=== PATIENT | female | born 2000 | race Caucasian/White ===

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

== ENCOUNTER 2019-04-09 06:10 | Day surgery (SDC) | payer BC ==
[2019-04-09 07:34] VITALS: BP 115/78; BMI 24.8
[2019-04-09 07:45] LABS: HEMATOCRIT 36.6 % (36.0-48.0); HEMOGLOBIN 12.8 g/dL (12-16); MCH 31.9 pg (26.0-34.0); MCV 91.3 fL (80.0-100.0); MEAN PLATELET VOLUME 10.2 fL (7.4-10.4); RBC 4.01 10x6/uL (4.00-5.40); RDW 12.6 % (11.5-14.5)
[2019-04-09 07:50] LABS: HCG URINE NEGATIVE (NEGATIVE)
[2019-04-09] MEDS ORDERED: HYDROCODON-ACE1 EAC7 PO (10:22)
[2019-04-09] MEDS ORDERED: DURICEF500 MG PO (10:22)
--- NOTE | 2019-04-09 12:58 | OP ---
PATIENT NAME: KAY LAZO MEDICAL RECORD: [id number] :99 LOCATION:[facility] ADMISSION DATE: SURGEON: BRITTNEY JOHNS DO DATE OF OPERATION: 04/09/2019 PROCEDURE PERFORMED: Excision of recurrent ganglion cyst of the right wrist, dorsal wrist. PREOPERATIVE DIAGNOSIS: Recurrent ganglion cyst, right wrist, dorsal wrist. POSTOPERATIVE DIAGNOSIS: Recurrent ganglion cyst, right wrist, dorsal wrist. INDICATIONS: Ms. Lazo is a 19-year-old female who underwent a ganglion cyst excision on the dorsal aspect of her wrist about 6 months ago and it had recurred. She was informed that if this does happen again, we try to remove it again and see if it would go away this time. She is aware of the risks including recurrence, infection, bleeding, damage to nerves and vessels and she signed the consent. SURGEON: Brittney Jonhs DO DESCRIPTION OF PROCEDURE: The patient was taken to the operative suite, laid in supine position, given TIVA, slight sedation. The right upper extremity was prepped and draped in sterile fashion. A timeout was performed, everyone was in agreement as to the correct site, side, patient and procedure. The patient was given a gram of Ancef preoperatively. The right upper extremity was then exsanguinated with an Esmarch and tourniquet was inflated to 250 mmHg, was up for 22 minutes. The incision then began over the prior incision on the dorsal wrist and careful dissection was made down to the ganglion. It did rupture, but we got down to the stalk off the scapholunate area of the wrist and removed it from the capsule. We noticed there was a rent in the capsule and this was repaired with 3-0 Vicryl and a 5-0 Monocryl also and then this was coagulated with the bipolar, closed, sealed with bipolar hopefully sealing the wrist joint up so it would not occur. The tourniquet was let down 22 minutes and any of the bleeding was coagulated with bipolar. The incision was then closed with 5-0 Monocryl in inverted interrupted fashion. Steri-Strips were placed on Adaptic, 4 x 4's, Kerlix, and a Coban was lightly wrapped on the wrist. The patient was awakened and taken back to outpatient in stable condition. BLOOD LOSS: Minimal. COMPLICATIONS: None. TRANSINT:[id number] Voice Confirmation ID: [id number] DOCUMENT ID: [id number] BRITTNEY JOHNS DO at 1258 CC: [id number] DICTATION DATE: 04/09/19 1019 SUGAR LABORATORY ASSISTANT: 04/09/19 1228 [facility] [place] [id number] [place] [id number]
== END 2019-04-09 12:12 | disposition home or self-care (01) ==
LOC: D.OPS 06:10
PROVIDERS: Anesthesiology; ATTEND Orthopaedic Surgery
DX: M67.431 Ganglion, right wrist (principal); Z01.812 Encounter for preprocedural laboratory examination

== ENCOUNTER 2020-05-30 21:01 | Outpatient (CLI) | payer BC ==
[2020-05-30 21:57] LABS: UDS - AMPHET NEGATIVE QUAL (NEGATIVE); UDS - BARB NEGATIVE QUAL (NEGATIVE); UDS - BENZO NEGATIVE QUAL (NEGATIVE); UDS - COCAINE NEGATIVE QUAL (NEGATIVE); UDS - OPIATE NEGATIVE QUAL (NEGATIVE); UDS - PCP NEGATIVE QUAL (NEGATIVE); UDS - THC NEGATIVE QUAL (NEGATIVE)
[2020-05-30 22:15] LABS: BACTERIA MODERATE /hpf (NEGATIVE); BILIRUBIN NEGATIVE (NEGATIVE); EPITHELIAL CELLS 0-5 /hpf (0-5); GLUCOSE NEGATIVE (NEGATIVE); KETONE NEGATIVE (NEGATIVE); NITRITE NEGATIVE (NEGATIVE); RED CELLS - URINE OCC /hpf (0-5); UROBILINOGEN NORMAL (NORMAL); WHITE CELLS - URINE OCC /hpf (NEGATIVE)
== END 2020-05-30 22:45 ==
LOC: D.LDO 21:01
PROVIDERS: ATTEND Obstetrics & Gynecology
DX: O26.899 Other specified pregnancy related conditions, unspecified trimester (principal); Z3A.00 Weeks of gestation of pregnancy not specified; R42 Dizziness and giddiness; R10.9 Unspecified abdominal pain

== ENCOUNTER 2020-06-09 10:00 | Outpatient (CLI) | payer BC | END 2020-06-09 10:36 | disposition home or self-care (01) | LOC: D.LDO 10:00 | PROVIDERS: ATTEND Obstetrics & Gynecology | DX: O36.5930 Maternal care for other known or suspected poor fetal growth, third trimester, not applicable or unspecified (principal); Z3A.35 35 weeks gestation of pregnancy ==

== ENCOUNTER 2020-06-19 05:47 | Inpatient (IN) | payer BC, MEDICAID ==
[~2020-06-19] VITALS: Ht 160 cm; Wt 81.6 kg
[2020-06-19] VITALS (19 sets, daily range): BP systolic 85–109; BP diastolic 46–72; Ht 160 cm; Wt 81.6 kg
[2020-06-19] MEDS ORDERED: PREPLUS CA-FE1 EACH PO (06:35)
[2020-06-19 07:15] LABS: HEMOGLOBIN 10.4 g/dL (12-16); MCH 31.4 pg (26.0-34.0); MCHC 33.5 g/dL (31.0-37.0); MCV 93.7 fL (80.0-100.0); MEAN PLATELET VOLUME 9.2 fL (7.4-10.4); RBC 3.31 10x6/uL (4.00-5.40); RDW 12.9 % (11.5-14.5); WBC 8.2 10x3/uL (4.8-10.8)
--- NOTE | 2020-06-19 08:33 | NUR ---
BABY GIRL LIVE @ 2497
--- NOTE | 2020-06-19 08:43 | NUR ---
YONI REF [id number] LOT [id number] EXP 12/21/2024
--- NOTE | 2020-06-19 09:33 | NUR ---
REC'D FROM PACU.
--- NOTE | 2020-06-19 10:06 | NUR ---
ASSESSMENT COMPLETE. SEE FLOWSHEET. PATIENT A&O X4. DENIES PAIN. SKIM WARM AND DRY. IV IN LEFT HAND WITH PIPE CHIPPER AND FLUID. SL LOCK IN RIGHT HAND. DRESSING ON ABDOMINAL INCISION WITH MININAL DRAINING-DRAINAIGE MARKED. SIMENTAL CATH IN PLACE WITH CLEAR YELLOW URINE OUTPUT. FUNDUS FIRM, MIDLINE, U1. SCD'S ON BILAT. CALL LIGHT IN REACH. AT BEDSIDE.
--- NOTE | 2020-06-19 11:30 | NUR ---
ROUNDING COMPLETE. EMPTIED 300CC OF CLEAR URINE OUT OF SIMENTAL CATH. PATIENT DENIES ANY NEEDS AT THIS TIME. CALL LIGHT IN REACH, SCD'S ON BILAT, IN ROOM. BABY SKIN TO SKIN WITH MOM.
--- NOTE | 2020-06-19 12:10 | NUR ---
ROUNDING WITH PATIENT. PATIENT STATES SHE FEELS LIKE SHE IS VAGINALLY BLEEDING. MODERATE AMOUNT OF BLEEDING ON PAD. LIDA AREA CLEANED AND NEW PAD PLACED. PATIENT STATES SHE IS STARTING TO HAVE A LITTLE PAIN WITH MOVMEMENT. RATES PAIN 3/10 WITH MOVEMENT. 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 PATIENT DENIES FURTHER NEEDS. IN ROOM. SCD'S ON BILAT, CALL LIGHT IN REACH.
--- NOTE | 2020-06-19 12:22 | NUR ---
FUNDUS FIRM, MIDLINE AND U1 WITH SMALL AMT RUBRA LOCHIA, ONE SMALL DIME SIZED CLOT NOTED TO PERIPAD. SIMENTAL DRAINING TO BEDSIDE DRAINAGE.
--- NOTE | 2020-06-19 13:16 | NUR ---
ROUNDING WITH PATIENT. PATIENT RESTING, DENIES PAIN OR NEEDS AT THIS TIME. IN ROOM. SCD'S ON BILAT, CALL LIGHT IN REACH.
--- NOTE | 2020-06-19 14:12 | NUR ---
ROUDNING WITH BABY. PATIENT ATTEMPTING TO NURSE BABY. BABY HAVING A HARD TIME LATCHING ON. NIPPLE SHILD PROVIDED FOR PATIENT. BABY LACHED ON WITH OUT SHIELD AT THIS TIME. WILL CONTINUE TO ASSIST NEEDED. CALL LIGHT IN REACH. SCD'S ON BILAT. AT BEDSIDE. PATIENT DENIES NEEDS AT THIS TIME.
--- NOTE | 2020-06-19 15:25 | NUR ---
ROUNDING COMPLETE. VSS. SCD'S ON BILAT. PATIENT STATES ROOM FEELS WARM. TEMP ADJUSTED. EMPTIED 100CC OF CLEAR URINE OUT OF SIMENTAL CATH. PATIENT STATES HAS SOME MILD CRAMPING IN HER ABDOMEN. PAIN CONTROLLED WITH BRIGHT CUTTER. LIDA PAD WITH SMALL AMOUNT OF BLOOD NOTED. LIDA PAD CHANGED. FUNDIS FIRM, U1. PATIENT DENIES NEEDS AT THIS TIME. AT BEDSIDE. CALL LIGHT IN REACH.
[2020-06-19 15:46] LABS: BASOPHILS 0.1 % (0-2); EOSINOPHILS 0.5 % (0-7); HEMATOCRIT 25.7 % (36.0-48.0); IMMATURE GRANULOCYTES 0.3 % (0-5); LYMPHOCYTES 14.5 % (15-50); MCH 31.3 pg (26.0-34.0); MCHC 31.9 g/dL (31.0-37.0); MEAN PLATELET VOLUME 9.2 fL (7.4-10.4); MONOCYTES 7.5 % (2-11); NEUTROPHILS 77.1 % (40-80); RDW 13.2 % (11.5-14.5); WBC 9.3 10x3/uL (4.8-10.8)
[2020-06-19 15:52] LABS: HEMOGLOBIN 8.2 g/dL (12-16); MCV 98.1 fL (80.0-100.0); PLATELET COUNT 195 10x3/uL (130-400); RBC 2.62 10x6/uL (4.00-5.40)
--- NOTE | 2020-06-19 16:13 | NUR ---
CALLED DR DONNELLY ON LAB RESULTS. NO NEW ORDERS.
--- NOTE | 2020-06-19 17:10 | NUR ---
ROUNDING ON PAITNET. WATER CUP FILLED AND BOTH ICE PACKS FILLED. PATIENT DENIES ANY NEEDS AT THIS TIME. IN ROOM SNUGGLING BABY. CALL LIGHT IN REACH. SCD'D ON BILATERALLY.
--- NOTE | 2020-06-19 17:40 | NUR ---
ROUNDING COMPLETE. REQUEST FOR FORMULA FOR BABY. FORMULA PROVIDED. PATIENT DENIES NEEDS AT THIS TIME. SCD'S ON BILAT, CALL LIGHT IN REACH. IN ROOM. PATIENT FEEDING BABY BOTTLE AT THIS TIME.
--- NOTE | 2020-06-19 18:08 | NUR ---
PATIENT COMPLAINS OF PAIN 06/02 IN ABD. STATES IT JUST STARTED WITH MOVEMENT. 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 TORADOL GIVEN IV PER REQUEST.
--- NOTE | 2020-06-19 18:32 | NUR ---
PAIN RECHECK WITH PATIENT. STATES PAIN IS MUCH BETTER 1/10 AT THIS TIME. DENIES NEEDS. SCD'S IN PLACE BILATERAL, CALL LIGHT IN REACH. IN ROOM SNUGGLING BABY.
--- NOTE | 2020-06-19 19:30 | NUR ---
REPORT [id number] BY ADDISON NELSON.
--- NOTE | 2020-06-19 20:00 | NUR ---
PT HAD A C SECTION THIS MORNING. SHE HAS A DISPOSITION CLERK PUMP WITH [employer] FOR PAIN CONTROL. SHE TELLS ME THE TORADOL SHE HAD WORKED WELL AND SHE'D LIKE THAT AGAIN WHEN IT'S TIME. ASSESSMENT COMPLETE. HEART SOUNDS WNL, LUNGS CLEAR, AND BOWEL SOUNDS FAINTLY HEARD. PT IS NOT PASSING GAS. SKIN IS WARM AND DRY, DRESSING TO INCISION IS DRY AND INTACT. HER LOCHIA IS SMALL. SIMENTAL IS DRAINING CLEAR URINE. PT HAS IV'S IN BOTH HANDS 18 G NEEDLE. THE LEFT IS SALINE LOCKED. PT STATES SHE IS STILL RATING HER PAIN A 4-5 AND I LET HER KNOW ITS OK TO USE THAT DISPOSITION CLERK. HER IS IN THE ROOM WITH HER AND HE IS EXCELLENT AT HELPING WITH THE BABY. CALL LIGHT IS WITHING REACH TO CALL IF SHE NEEDS ANYTHING.
--- NOTE | 2020-06-19 20:30 | NUR ---
INCENTIVE SPIROMETER IN ROOM. EDUCATED PT ON HOW TO USE. SHE GOT THE METER UP TO 1500. SHE STATES HOW MUCH IT HURTS. I ENCOURAGED HER TO USE THIS 10 X PER HOUR OR WORK UP TO THAT GOAL. SHE STATES THAT NOW THAT HER KNOWS, HER WILL SEE TO IT THAT SHE DOES THIS.
--- NOTE | 2020-06-19 22:00 | NUR ---
PT IS AWAKE AND ALERT WATCHING TV. SHE HAS NO NEEDS AT THIS TIME. NO C/O PAIN. BABY SLEEPING IN CRIB.
--- NOTE | 2020-06-20 | NUR ---
RESTING QUIETLY WITHOUT C/O.
[2020-06-20 00:45] VITALS: BP 105/56
--- NOTE | 2020-06-20 01:04 | NUR ---
IV TORADOL GIVEN. PT IS AWAKE AND ALERT TALKING WITH FOB.
--- NOTE | 2020-06-20 01:22 | NUR ---
PT ADMITTED FOR POSSIBLE ECTOPIC . PT HAS BEEN SPOTTING AND CRAMPING SINCE LAST . SHE STATES SHE IS MOSTLY CRAMPING NOW. SKIN WARM AND DRY, HEART SOUNDS WNL, LUNGS CLEAR. SHE IS AWAKE AND ALERT AND ABLE TO ANSWER ADMISSION QUESTIONS ACURATELY. SHE HAS AN IV IN HER RIGHT FOREARM INFUSING AT 15 ML/HR SHE IS UP AD DIANE IN HER ROOM. SHE STATES SHE IS ABOUT 5 WEEKS . SHE WAS ADMITTED FOR A PROCEDURE IN THE AM.
--- NOTE | 2020-06-20 02:00 | NUR ---
PT IS RESTING QUIETLY
[2020-06-20 04:00] VITALS: BP 93/54
--- NOTE | 2020-06-20 04:00 | NUR ---
SIMENTAL CARE DONE.
--- NOTE | 2020-06-20 04:05 | NUR ---
PT DOING WELL. SHE AND ARE AWAKE AND HAVE BEEN BONDING WITH THE BABY. BABY IS NOW SLEEPING IN THE CRIB. 800 ML OF URINE EMPTIED FROM THE SIMENATL CATHETER. URINE IS CONCENTRATED WITH AN ODOR. PAIN IS CONTROLLED NOW. PT STATES SHE IS GOING TO TRY TO SLEEP. FRESH ICE WATER TAKEN TO HER WELL 2 FRESH ICE PACKS.
[2020-06-20 06:11] LABS: BASOPHILS 0.1 % (0-2); EOSINOPHILS 0.8 % (0-7); HEMATOCRIT 25.1 % (36.0-48.0); HEMOGLOBIN 8.2 g/dL (12-16); IMMATURE GRANULOCYTES 0.3 % (0-5); LYMPHOCYTES 6.9 % (15-50); MCH 31.1 pg (26.0-34.0); MCHC 32.7 g/dL (31.0-37.0); MEAN PLATELET VOLUME 8.9 fL (7.4-10.4); MONOCYTES 6.1 % (2-11); NEUTROPHILS 85.8 % (40-80); PLATELET COUNT 207 10x3/uL (130-400); RBC 2.64 10x6/uL (4.00-5.40); RDW 13.2 % (11.5-14.5); WBC 10.6 10x3/uL (4.8-10.8)
[2020-06-20 06:15] LABS: MCV 95.1 fL (80.0-100.0)
[2020-06-20 07:15] LABS: RAPID PLASMA REAGIN Non Reactive (Non Reactive)
[2020-06-20 07:46] VITALS: BP 101/53
--- NOTE | 2020-06-20 07:46 | NUR ---
SHIFT ASSESSMENT COMPLETED PER FLOWSHEET. VSS. FUNDUS FIRM, MIDLINE AND U2 WITH SCANT RUBRA LOCHIA, NO CLOTS NOTED. C/O ABD AND INCISIONAL PAIN 2-3/10, STATES THAT LIVESTOCK FEEDER IS CONTROLLING PAIN WELL. DRSG TO LOWER TRANSVERSE ABD INCISION CLEAN DRY AND INTACT, NO NEW DRAINAGE FROM PREVIOUSLY MARKED AREA NOTED. PERICARE DONE, TOWELS, CHUX, AND PADS CHANGED. POC DISCUSSED WITH PT, VERBALIZES UNDERSTANDING AND DENIES QUESTIONS. REQUESTS REGULAR DIET WHEN POSSIBLE. DENIES ADDITIONAL NEEDS. R HAND AND L HAND PIV'S NOTED, NO S/S OF INFILTRATION NOTED. R HAND PIV INFUSING WITHOUT DIFFICULTY, L HAND PIV FLUSHES WITHOUT DIFFICULTY. INFANT RESTING QUIETLY IN OPEN CRIB. SCD'S OFF PER PT REQUEST.
--- NOTE | 2020-06-20 08:11 | NUR ---
DR. DONNELLY AT BEDSIDE. DRSG TO LOWER TRANSVERSE ABD INCISION REMOVED PER DR. DONNELLY. INCISION WELL APPROXIMATED WITH BART INTACT, NO DRAINAGE NOTED. DR. DONNELLY DISCUSSES POC WITH PT AND ANSWERS PT QUESTIONS.
--- NOTE | 2020-06-20 08:20 | NUR ---
L HAND PIV SL. R HAND PIV D/C'D PER PT REQUEST. SIMENTAL D/C'D WITH 150 MLS PRESENT. PT INSTRUCTED NOT TO GET OOB WITHOUT ASSIST, VERBALIZES UNDERSTANDING. BED IN LOW POSITION WITH SRUP X2. CALL LIGHT AND PHONE WITHIN REACH.
--- NOTE | 2020-06-20 09:38 | NUR ---
SITTING UP IN HIGH FOWLERS POSITION BONDING WITH . ICE WATER PROVIDED. DENIES ADDITIONAL NEEDS. BED IN LOW POSITION WITH SRUP X2. CALL LIGHT AND PHONE WITHIN REACH. WILL CONTINUE TO MONITOR.
--- NOTE | 2020-06-20 11:21 | NUR ---
UP TO VOID, VOIDED 600 MLS IN HAT. STEADY GAIT NOTED. DENIES DIZZINESS AND LIGHTHEADEDNESS. REFUSES PAIN MEDS AT THIS TIME. DENIES PAIN. WILL CONTINUE TO MONITOR.
--- NOTE | 2020-06-20 12:34 | NUR ---
PT PRESSES CALL LIGHT AND REQUESTS PAIN MED. THIS RN TO ROOM. PT SITTING UP EATING LUNCH TRAY. PT RATES PAIN 4/10 AT THIS TIME, STATES IT'S MORE ABD CRAMPING THAN INCISIONAL. PT STATES SHE JUST WANTS MOTRIN RIGHT NOW, ADMIN ORDERED, SEE EMAR FOR DOC. PT DENIES FURTHER NEEDS. SRUx2, CL IN REACH. SIG OTHER AT BEDSIDE.
--- NOTE | 2020-06-20 14:34 | NUR ---
PT CALLS OUT TEST EQUIPMENT MECHANIC LIGHT STATING SHE IS READY TO GET UP TO BR AND NEEDS ASSIST. THIS RN TO ROOM. PT UP TO BR TO VOID WITH MINIMAL ASSIST. PT VOIDS 500ML CLEAR YELLOW URINE. PERICARE AND PAD CHANGE PER PT, PERIPAD ALSO PLACED OVER INCISION. PT BED PADS CHANGED. PT AMBULATES BACK TO BED WITHOUT ASSIST. PT REQUESTS PAIN MED PAIN IS WORSE WITH MOVEMENT AND STATES "IT'S HARD TO GET COMFORTABLE EVEN JUST LYING HERE." PT ADMIN PRN NORCO 10 ORDERED PRN, SEE EMAR FOR DOC. MED EDUCATION ON NEW MED DONE. UNDERSTANDING VERBALIZED. FRESH ICE WATER PROVIDED. PT DENIES FURTHER NEEDS. SRUx2, CL IN REACH. SIG OTHER AT BEDSIDE.
--- NOTE | 2020-06-20 16:05 | NUR ---
THIS RN TO ROOM FOR PT CHECK. PT RESTING IN BED, SUPINE WITH LEFT TILT. EYES CLOSED, RESP EVEN AND UNLABORED. PT LEFT UNDISTURBED FOR REST. SIG OTHER ON BEDSIDE COUCH, AWAKE AND HOLDING . STATES PT HAS BEEN FEELING MUCH BETTER AFTER PAIN MED.
--- NOTE | 2020-06-20 17:20 | NUR ---
UP TO BR, VOIDED 600 MLS CLEAR LIGHT YELLOW URINE IN HAT. FUNDUS FIRM, MIDLINE AND U2 WITH SCANT RUBRA LOCHIA, NO CLOTS NOTED. BED IN LOW POSITION WITH SRUP X2. CALL LIGHT AND PHONE WITHIN REACH. WILL CONTINUE TO MONITOR.
[2020-06-20 17:54] VITALS: BP 105/57
--- NOTE | 2020-06-20 17:56 | NUR ---
VS DONE. SITTING UP IN BED- DENIES NEEDS.
[2020-06-20 19:24] VITALS: BP 105/58
--- NOTE | 2020-06-20 19:24 | NUR ---
ASSESSMENT PER FLOW SHEET, VS OBTAINED, FF, ML, U/1, PT DENIES FLATUS, NO BM AND VOIDING WITH NO DIFFICULTY, PT REPORTS BLEEDING LIGHT WITH NO CLOTS, BIKINI INC WITH BART CDI WITH NO DRAIANGE NOTED, PT RATES INC PAIN AND CRAMPING 2/10, PT DENIES NEED FOR ANY PAIN MED AT THIS TIME, PT INFORMED THAT SHE WILL BE MOVING TO A ROOM ON WOMENS, PT VERBALIZES UNDERSTANDING, FOB TO GET BELONGINGS TOGETHER
--- NOTE | 2020-06-20 20:00 | NUR ---
PT TRANSFERRED VIA AMB TO ROOM 1220 PER NGA HANSEN RN, PT ORIENTED TO ROOM, BED IN LOW POSITION, SIDE RAILS X 2, CALL LIGHT IN REACH, FOB BROUGHT ALL BELONGINGS TO ROOM
--- NOTE | 2020-06-20 21:13 | NUR ---
FOB AT HOST/HOSTESS, REPORTS PT WOULD LIKE TO HAVE A MOTRIN, THIS RN TO ROOM, ADM MOTRIN PER MD ORDERS, SEE EMAR, PT DENIES NEED FOR PAIN PILL AT THIS TIME, PT REPORTS THAT SHE WILL LET ME KNOW WHEN SHE IS READY FOR A PAIN PILL, PT DENIES FURTHER NEEDS, INFANT IN OPEN CRIB CART AT BEDSIDE
--- NOTE | 2020-06-20 22:21 | NUR ---
PT REQUESTED AND PROVIDED WIPES FOR INFANT, PT REPORTS THAT SHE WILL LET ME KNOW WHEN SHE IS READY FOR THE PAIN PILL, PT DENIES FURTHER NEEDS, INFANT IN OPEN CRIB CART AND FOB AT BEDSIDE
[2020-06-21 00:35] VITALS: BP 97/52
--- NOTE | 2020-06-21 00:35 | NUR ---
PT HOLDING INFANT, VS OBTAINED, RATES PAIN 4/10, DENIES NEED FOR PAIN MED, STATES "SHE HAS TO EAT IN AN HOUR AND I WILL PROBABLY TAKE IT AFTER I FINISH FEEDING HER", PT INST TO USE CALL LIGHT WHEN NEEDING PAIN MED, PT DENIES NEEDS, FOB AT BEDSIDE
--- NOTE | 2020-06-21 02:13 | NUR ---
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
--- NOTE | 2020-06-21 04:15 | NUR ---
PT RESTING WITH EYES CLOSED, RESP QUIET, NO DISTRESS NOTED, LEFT UNDISTURBED AT THIS TIME, FOB ASLEEP AT BEDSIDE
[2020-06-21 05:27] VITALS: BP 97/52
--- NOTE | 2020-06-21 05:27 | NUR ---
PT AWAKE, INFANT, VS OBTAINED, ADM MOTRIN PER MD ORDERS, SEE EMAR, PT DENIES FURTHER NEEDS, FOB AT BEDSIDE
--- NOTE | 2020-06-21 06:44 | NUR ---
PT SITTING UP IN BED, REPORTS "PAIN IS BETTER, JUST A LITTLE GASSY, BUT I CAN FEEL IT MOVING AROUND IN THERE", ENC PT TO AMB TODAY, PT DENIES NEEDS AT THIS TIME, INFANT IN OPEN CRIB CART AND FOB AT BEDSIDE
--- NOTE | 2020-06-21 07:36 | NUR ---
dr samano here to see pt.
[2020-06-21 07:37] VITALS: BP 93/48
--- NOTE | 2020-06-21 07:49 | NUR ---
ASSESSMENT DONE-VERBAL RESPONSES APPRO TO QUESTIONS. STATES UP TO BATHROOM. DENIES PASSING FLATUS YET. DENIES DIZZINESS WHEN UP. REG DIET SERBED. DENIES NEEDS.
--- NOTE | 2020-06-21 09:27 | NUR ---
PT STATES SHE IS PASSING FLATUS AND DOES NOT WANT DULCOLAX SUPPISITORY.
[2020-06-21 13:03] VITALS: BP 109/62
--- NOTE | 2020-06-21 13:05 | NUR ---
STANDING AT BEDSIDE. STATES SHE WAS GOINT TO BATHROOM. VS DONE. STATES THAT SHE HAS BEEN PASSING GAS AND IS READY FOR DISCHARGE TODAY. STATES SHE WANTS TO SHOWER AFTER SHE GOES HOME. DISCUSSED INCISION CARE FOR AFTER DISCHARGE. STATES UNDERSTANDING.
--- NOTE | 2020-06-21 14:47 | NUR ---
DISCHARGE INST GIVEN FOR PT TO READ- SEE SIGNED SHEET. CO HEADACHE AND REQUESTING MOTRIN. MED GIVEN.
[2020-06-21] MEDS ORDERED: HYDROCODON-ACE1 EA10 PO (15:44)
[2020-06-21] MEDS ORDERED: MOTRIN600 MG PO (15:45)
--- NOTE | 2020-06-21 16:02 | NUR ---
DISCHARGE INST VERBAL AND WRITTEN GIVEN. SCRIPT GIVEN. SEE OTHER SIGNED INFO SHEET. PT MED REC GIVEN. PT HEALTH SUMMARY GIVEN. DENIES QUESTIONS AT THIS TIME.
--- NOTE | 2020-06-21 19:05 | NUR ---
PT DISCHARGED HOME, STABLE, VIA WC PER ALIN ROMEO RN WITH AND FOB
== END 2020-06-21 19:05 | disposition home or self-care (01) | DRG 788 ==
LOC: D.LD 05:47 → D.WS 06-20 20:00
PROVIDERS: ADMIT Obstetrics & Gynecology; ATTEND Obstetrics & Gynecology
PROC: 10D00Z1 Extraction of Products of Conception, Low, Open Approach (ICD-10-PCS; principal; 2020-06-19 07:30)
DX: O44.23 Partial placenta previa NOS or without hemorrhage, third trimester (principal); Z3A.37 37 weeks gestation of pregnancy; Z37.0 Single live birth